=== PATIENT | male | born 1940 | race Caucasian/White ===

== ENCOUNTER → 2016-05-20 | Outpatient (CLI) | payer OTHER | LOC: BHFA 11:00 | PROVIDERS: ATTEND Internal Medicine Cardiovascular Disease | DX: R07.9 Chest pain, unspecified (principal); I73.9 Peripheral vascular disease, unspecified; E78.5 Hyperlipidemia, unspecified; I10 Essential (primary) hypertension; C67.9 Malignant neoplasm of bladder, unspecified ==

== ENCOUNTER → 2016-05-22 | Outpatient (CLI) | payer OTHER | LOC: BHFA 13:30 | PROVIDERS: ATTEND Internal Medicine Cardiovascular Disease | DX: Z01.810 Encounter for preprocedural cardiovascular examination (principal); R07.9 Chest pain, unspecified | CPT/HCPCS: 78452; 93017; A9500 ==

== ENCOUNTER → 2016-07-10 | Outpatient (CLI) | payer OTHER | LOC: CIMAGING 20:01 | PROVIDERS: ATTEND Family Medicine | DX: M79.89 Other specified soft tissue disorders (principal) | CPT/HCPCS: 73030-PO ==

== ENCOUNTER → 2016-08-07 | Outpatient (CLI) | payer OTHER | LOC: CIMAGING 07:05 | PROVIDERS: ATTEND Physician Assistant | DX: Z09 Encounter for follow-up examination after completed treatment for conditions other than malignant neoplasm (principal); Z98.1 Arthrodesis status | CPT/HCPCS: 72100-PO ==

== ENCOUNTER → 2016-10-22 | Outpatient (CLI) | payer OTHER | LOC: CIMAGING 16:56 | PROVIDERS: ATTEND Physician Assistant | DX: Z09 Encounter for follow-up examination after completed treatment for conditions other than malignant neoplasm (principal); Z98.1 Arthrodesis status | CPT/HCPCS: 72100-PO ==

== ENCOUNTER → 2016-12-02 | Outpatient (CLI) | payer OTHER | LOC: CIMAGING 16:09 | PROVIDERS: ATTEND Neurological Surgery | DX: Z98.1 Arthrodesis status (principal) | CPT/HCPCS: 72100-PO ==

== ENCOUNTER → 2017-02-21 | Outpatient (CLI) | payer OTHER | LOC: CIMAGING 09:32 | PROVIDERS: ATTEND Family Medicine | DX: M19.012 Primary osteoarthritis, left shoulder (principal) | CPT/HCPCS: 73030-PO ==

== ENCOUNTER 2017-02-22 06:36 | Emergency (ER) | payer OTHER ==
--- NOTE | 2017-02-22 07:00 | CPEKG ---
Heart Rate: 64 RR Interval: 938 P-R Interval: 160 QRSD Interval: 164 QT Interval: 452 QTC Interval: 467 P [place]: 57 QRS [place]: -75 T Wave [place]: 51 EKG Severity - ABNORMAL ECG - EKG Impression: SINUS RHYTHM EKG Impression: RBBB AND LAFB Electronically Signed By: Fuad Fernandez 22-Feb-2017 07:18:51
[2017-02-22] MEDS ORDERED: ASPIRIN 81 MG CHEWABLE TAB PO ONE (07:03)
[2017-02-22] MEDS ORDERED: NS 1,000 ML IV ONE (07:13)
[2017-02-22 07:15] VITALS: PULSE 60
[2017-02-22 07:18] LABS: % IMMATURE GRANULYOCYTES 0.2 % (0.0-1.1); ABSOLUTE IMMATURE GRANULOCYTES 0.01 10^3/uL (0.00-0.10); ADD DIFF? NO; ADD MORPH? NO; ADD SCAN? NO; ATYPICAL LYMPHOCYTE FLAG 0 (0-99); FRAGMENT RBC FLAG 0 (0-99); HEMATOCRIT 38.8 % (40.0-51.0); LEFT SHIFT FLG 0 (0-99); LIPEMIA HEMOLYSIS FLAG 80 (0-99); MEAN CELL HEMOGLOBIN 32.5 pg (27.9-34.1); MEAN CELL HEMOGLOBIN CONCENTR. 33.5 g/dL (32.4-36.7); MEAN PLATELET VOLUME 9.9 fL (8.7-11.7); PLATELET CLUMPS FLAG 10 (0-99); PLATELET COUNT 218 10^3/uL (150-400)
--- NOTE | 2017-02-22 07:18 | EDPHY ---
H & P Stated Complaint: chest pain for 1 week Time Seen by Provider: 02/22/17 07:05 HPI/ROS: CHIEF COMPLAINT: Chest pain HISTORY OF PRESENT ILLNESS: The patient is a 77-year-old man who comes to the emergency department complaining of chest pain for about 1 week. He states that his symptoms are sharp and over his left breast and intermittent. They seem to be exacerbated by marijuana use. He used marijuana yesterday evening for the 1st time in several days. He states that he is trying to cut down. He had significant pain yesterday evening and then a single episode this morning about an hour and half ago was worse than typical. They usually only last for few seconds. No shortness of breath nausea or diaphoresis associated. No lightheadedness. No worsening with exertion. No radiation. He does have a history of high cholesterol. No hypertension. No recent travel leg pain or swelling. No shortness of breath or pleurisy. No recent fevers or illness. 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 REVIEW OF SYSTEMS: Constitutional: denies: chills, fever, recent illness, recent injury EENTM: denies: blurred vision, double vision, nose congestion Respiratory: denies: cough, shortness of breath Cardiac: See HPI Gastrointestinal/Abdominal: denies: abdominal pain, diarrhea, nausea, vomiting, blood streaked stools Genitourinary: denies: dysuria, frequency, hematuria, pain Musculoskeletal: denies: joint pain, muscle pain Skin: denies: lesions, rash, jaundice, bruising Neurological: denies: headache, numbness, paresthesia, tingling, dizziness, weakness Hematologic/Lymphatic: denies: blood clots, easy bleeding, easy bruising Immunologic/allergic: denies: HIV/AIDS, transplant EXAM: GENERAL: Well-appearing, well-nourished and in no acute distress. HEAD: Atraumatic, normocephalic. EYES: Pupils equal round and reactive to light, extraocular movements intact, sclera anicteric, conjunctiva are normal. ENT: TMs normal, nares patent, oropharynx clear without exudates. Moist mucous membranes. NECK: Normal range of motion, supple without lymphadenopathy or JVD. LUNGS: Breath sounds clear to auscultation bilaterally and equal. No wheezes rales or rhonchi. HEART: Regular rate and rhythm without murmurs, rubs or gallops. ABDOMEN: Soft, nontender, normoactive bowel sounds. No guarding, no rebound. No masses appreciated. BACK: No CVA tenderness, no spinal tenderness, step-offs or deformities EXTREMITIES: Normal range of motion, no pitting or edema. No clubbing or cyanosis. NEUROLOGICAL: Cranial nerves II through XII grossly intact. Normal speech, normal gait. 5/5 strength, normal movement in all extremities, normal sensation PSYCH: Normal mood, normal affect. SKIN: Warm, dry, normal turgor, no visible rashes or lesions. Source: Patient Exam Limitations: No limitations - Personal History Current Tetanus Diphtheria and Acellular Pertussis (TDAP): Yes Tetanus Vaccine Date: unsure - Medical/Surgical History Hx Asthma: No Hx Chronic Respiratory Disease: No Hx Diabetes: No Hx Cardiac Disease: Yes Hx Renal Disease: No Hx Cirrhosis: No Hx Alcoholism: No Hx HIV/AIDS: No Hx Splenectomy or Spleen Trauma: No Other PMH: tib/fib, diverticulitis, bladder CA, INFLAMMATORY POLYARTHROPATHY, spinal fusion L3-L4, HIGH CHOLESTEROL, GASTRIC ULCER, SINUS SURG, TONSILS,APPY, RBBB,arthritis - Family History Significant Family History: No pertinent family hx - Social History Smoking Status: Former smoker Alcohol Use: Sober Drug Use: None Constitutional: Initial Vital Signs Heart Rate 68 02/22/17 06:52 Respiratory Rate 18 02/22/17 06:52 Blood Pressure 190/100 H 02/22/17 06:52 O2 Sat (%) 94 02/22/17 06:52 O2 Delivery Mode Room Air Allergies/Adverse Reactions: droperidol [From Inapsine] Allergy (Intermediate, Verified 02/22/17 06:59) AGITATION Home Medications: Medication Instructions Recorded HYDROcodone/APAP 10 [[place] 1 tab PO BID PRN 04/05/13 (RX)] Omeprazole [Prilosec 40 mg] 40 mg PO BID 04/05/13 Atorvastatin Calcium 07/17/13 Medical Decision Making - Diagnostics EKG Interpretation: An EKG obtained and was read and documented in trace view. Please see trace view for full reading and report. Right bundle branch block and left anterior fascicular unchanged from previous Imaging Results: Imaging Impressions Chest X-Ray 02/22/17 07:15 Impression: Stable negative chest.. Chest/Thorax CTA 02/22/17 07:49 Impression: Negative CT examination of the chest for acute pulmonary thromboembolic disease. Results called to Dr. Fuad Fernandez at 8:30 AM at the time of the interpretation. Imaging: Discussed imaging studies w/ faculty i on call medical assistant Radiologist ED Course/Re-evaluation: 8:45 p.m. we had a long discussion about patient's testing thus far. I recommended he stay for a 4 hour troponin however he declines. He would like to go home. He is currently asymptomatic. He states that he will probably come back at 11 to have his troponin re-drawn then. I explained to him that this is not typical and would require him having a 2nd visit and 2nd bill . He states that that is fine with him. I again Discouraged him from going home concern for if he worsens between then and now. He persisted. We discussed the fact that his orthopedic surgery on Friday will likely need to be postponed and tell he can follow up and have a stress test. Differential Diagnosis: Partial list of the Differential diagnosis considered include but were not limited to; acute coronary disease, musculoskeletal pain, PE and although unlikely based on the history and physical exam, I also considered pneumonia, bronchitis, fracture. I discussed these differential diagnoses and the plan with the patient as well as the usual and expected course. The patient understands that the diagnosis is provisional and that in medicine we are not always correct and that further workup is often warranted. Usual and customary warnings were given. All of the patient's questions were answered. The patient was instructed to return to the emergency department should the symptoms at all worsen or return, otherwise to followup with the physician as we discussed. - Data Points Laboratory Results: Laboratory Results 02/22/17 07:15 02/22/17 07:15 02/22/17 02/22/17 02/22/17 07:15 07:15 07:15 WBC 5.41 10^3/uL 10^3/uL (3.80-9.50) RBC 4.00 10^6/uL L 10^6/uL (4.40-6.38) Hgb 13.0 g/dL L g/dL (13.7-17.5) Hct 38.8 % L % (40.0-51.0) MCV 97.0 fL fL (81.5-99.8) MCH 32.5 pg pg (27.9-34.1) MCHC 33.5 g/dL g/dL (32.4-36.7) RDW 14.0 % % (11.5-15.2) Plt Count 218 10^3/uL 10^3/uL (150-400) MPV 9.9 fL fL (8.7-11.7) Neut % (Auto) 54.2 % % (39.3-74.2) Lymph % (Auto) 26.2 % % (15.0-45.0) Bertie % (Auto) 12.0 % % (4.5-13.0) Eos % (Auto) 6.5 % % (0.6-7.6) Baso % (Auto) 0.9 % % (0.3-1.7) Nucleat RBC Rel Count 0.0 % % (0.0-0.2) Absolute Neuts (auto) 2.93 10^3/uL 10^3/uL (1.70-6.50) Absolute Lymphs (auto) 1.42 10^3/uL 10^3/uL (1.00-3.00) Absolute Monos (auto) 0.65 10^3/uL 10^3/uL (0.30-0.80) Absolute Eos (auto) 0.35 10^3/uL 10^3/uL (0.03-0.40) Absolute Basos (auto) 0.05 10^3/uL 10^3/uL (0.02-0.10) Absolute Nucleated RBC 0.00 10^3/uL 10^3/uL (0-0.01) Immature Gran % 0.2 % % (0.0-1.1) Immature Gran # 0.01 10^3/uL 10^3/uL (0.00-0.10) PT 11.8 SEC L SEC (12.0-15.0) INR 0.89 (0.83-1.16) APTT 31.0 SEC SEC (23.0-38.0) D-Dimer 0.88 ug/mLFEU H ug/mLFEU (0.00-0.50) Sodium 139 mEq/L mEq/L (134-144) Potassium 4.3 mEq/L mEq/L (3.5-5.2) Chloride 106 mEq/L mEq/L (97-110) Carbon Dioxide 23 mEq/l mEq/l (22-31) Anion Gap 10 mEq/L mEq/L (8-16) BUN 20 mg/dL mg/dL (7-23) Creatinine 0.9 mg/dL mg/dL (0.7-1.3) Estimated GFR > 60 Glucose 106 mg/dL H mg/dL (70-100) Calcium 9.5 mg/dL mg/dL (8.5-10.4) Total Bilirubin 1.0 mg/dL mg/dL (0.1-1.4) Conjugated Bilirubin 0.4 mg/dL mg/dL (0.0-0.5) Unconjugated Bilirubin 0.6 mg/dL mg/dL (0.0-1.1) AST 31 IU/L IU/L (17-59) ALT 38 IU/L IU/L (21-72) Alkaline Phosphatase 64 IU/L IU/L (38-126) Troponin I < 0.012 ng/mL ng/mL (0.000-0.034) Total Protein 7.1 g/dL g/dL (6.3-8.2) Albumin 4.4 g/dL g/dL (3.5-5.0) Lipase 126 IU/L IU/L (23-300) Medications Given: Discontinued Medications Aspirin (Aspirin) 324 mg PO EDNOW ONE Stop: 02/22/17 07:04 Last Admin: 02/22/17 07:07 Dose: 324 mg Departure - Departure Disposition: Home, Routine, Self-Care Clinical Impression: Chest pain Qualifiers: Chest pain type: unspecified Qualified Code(s): R07.9 - Chest pain, unspecified Condition: Fair Instructions: Chest Pain (ED) Referrals: Hrenan Jenkins MD [Primary Care Provider] - As per Instructions
[2017-02-22 07:33] LABS: INR 0.89 (0.83-1.16); PROTIME(PATIENT) 11.8 SEC (12.0-15.0)
[2017-02-22 07:37] LABS: ALANINE AMINOTRANSFERASE 38 IU/L (21-72); ALBUMIN 4.4 g/dL (3.5-5.0); ALKALINE PHOSPHATASE 64 IU/L (38-126); ANION GAP 10 mEq/L (8-16); ASPARTATE AMINOTRANSFERASE 31 IU/L (17-59); BILIRUBIN-CONJUGATED 0.4 mg/dL (0.0-0.5); BILIRUBIN-UNCONJUGATED 0.6 mg/dL (0.0-1.1); CALCIUM 9.5 mg/dL (8.5-10.4); CARBON DIOXIDE 23 mEq/l (22-31); CHLORIDE 106 mEq/L (97-110); CREATININE 0.9 mg/dL (0.7-1.3); GLOMERULAR FILTRATION RATE > 60; GLUCOSE 106 mg/dL (70-100); POTASSIUM 4.3 mEq/L (3.5-5.2); SODIUM 139 mEq/L (134-144); TOTAL PROTEIN 7.1 g/dL (6.3-8.2)
[2017-02-22 08:03] LABS: TROPONIN I < 0.012 ng/mL (0.000-0.034)
[2017-02-22] MEDS ORDERED: IOPAMIDOL (ISOVUE 370) 100 ML BTL IV ONE (08:04)
[2017-02-22 08:57] VITALS: BP 180/94; RESP 18; TEMP 98; O2SAT 94
== END 2017-02-22 08:56 | disposition home or self-care (01) ==
LOC: CED 06:36
DX: R07.9 Chest pain, unspecified (principal); Z85.51 Personal history of malignant neoplasm of bladder; Z87.891 Personal history of nicotine dependence
CPT/HCPCS: 71020; 71275; 93005; 99285; Q9967; 80048-PO; 80076-PO; 83690-PO; 84484-PO; 85025-PO; 85378-PO; 85610-PO; 85730-PO

== ENCOUNTER 2017-02-22 11:15 | Emergency (ER) | payer OTHER ==
[2017-02-22 11:27] VITALS: BP 120/86; PULSE 61; RESP 16; O2SAT 93
--- NOTE | 2017-02-22 11:27 | EDPHY ---
H & P Time Seen by Provider: 02/22/17 11:24 HPI/ROS: CHIEF COMPLAINT: Chest pain HISTORY OF PRESENT ILLNESS: Patient is a 77-year-old man who I saw a few hours ago complaining of chest pain for the last couple of days. It is intermittent and sharp over his left breast. He had a negative troponin as well as a CT angio of his chest that was negative. His symptoms resolved. I have recommended that he stay for a 4 hour delta troponin. The patient declines this and stated that he would return. He is now here for his 2nd troponin. He is currently asymptomatic. REVIEW OF SYSTEMS: Constitutional: denies: chills, fever, recent illness, recent injury EENTM: denies: blurred vision, double vision, nose congestion Respiratory: denies: cough, shortness of breath Cardiac: See HPI Gastrointestinal/Abdominal: denies: abdominal pain, diarrhea, nausea, vomiting, blood streaked stools Genitourinary: denies: dysuria, frequency, hematuria, pain Musculoskeletal: denies: joint pain, muscle pain Skin: denies: lesions, rash, jaundice, bruising Neurological: denies: headache, numbness, paresthesia, tingling, dizziness, weakness Hematologic/Lymphatic: denies: blood clots, easy bleeding, easy bruising Immunologic/allergic: denies: HIV/AIDS, transplant EXAM: GENERAL: Well-appearing, well-nourished and in no acute distress. HEAD: Atraumatic, normocephalic. EYES: Pupils equal round and reactive to light, extraocular movements intact, sclera anicteric, conjunctiva are normal. ENT: TMs normal, nares patent, oropharynx clear without exudates. Moist mucous membranes. NECK: Normal range of motion, supple without lymphadenopathy or JVD. LUNGS: Breath sounds clear to auscultation bilaterally and equal. No wheezes rales or rhonchi. HEART: Regular rate and rhythm without murmurs, rubs or gallops. ABDOMEN: Soft, nontender, normoactive bowel sounds. No guarding, no rebound. No masses appreciated. BACK: No CVA tenderness, no spinal tenderness, step-offs or deformities EXTREMITIES: Normal range of motion, no pitting or edema. No clubbing or cyanosis. NEUROLOGICAL: Cranial nerves II through XII grossly intact. Normal speech, normal gait. 5/5 strength, normal movement in all extremities, normal sensation PSYCH: Normal mood, normal affect. SKIN: Warm, dry, normal turgor, no visible rashes or lesions. Source: Patient Exam Limitations: No limitations - Personal History Tetanus Vaccine Date: unsure - Medical/Surgical History Hx Asthma: No Hx Chronic Respiratory Disease: No Hx Diabetes: No Hx Cardiac Disease: Yes Hx Renal Disease: No Hx Cirrhosis: No Hx Alcoholism: No Hx HIV/AIDS: No Hx Splenectomy or Spleen Trauma: No Other PMH: tib/fib, diverticulitis, bladder CA, INFLAMMATORY POLYARTHROPATHY, spinal fusion L3-L4, HIGH CHOLESTEROL, GASTRIC ULCER, SINUS SURG, TONSILS,APPY, RBBB,arthritis - Family History Significant Family History: No pertinent family hx - Social History Smoking Status: Former smoker Alcohol Use: Sober Drug Use: Marijuana Constitutional: Initial Vital Signs Temperature (C) 36.5 C 02/22/17 11:24 Heart Rate 61 02/22/17 11:24 Respiratory Rate 16 02/22/17 11:24 Blood Pressure 120/86 H 02/22/17 11:24 O2 Sat (%) 93 02/22/17 11:24 O2 Delivery Mode Room Air Allergies/Adverse Reactions: droperidol [From Inapsine] Allergy (Intermediate, Verified 02/22/17 11:27) AGITATION Home Medications: Medication Instructions Recorded HYDROcodone/APAP [[place] 1 tab PO BID PRN 04/05/13 10 (RX)] Omeprazole [Prilosec 40 mg] 40 mg PO BID 04/05/13 Atorvastatin Calcium 07/17/13 Medical Decision Making ED Course/Re-evaluation: The patient also asked about some trigger finger symptoms in his left little finger. He states that when he wakes up in the morning it is curled and that he has to manually straighten it and there is a pop. He asked his primary about this who told him that x-rays would not help. I agree. He is able to use his finger with complete function and pain-free after he opens it in the morning. I do suspected trigger finger and will refer him to Hand surgery. He is happy with this plan. 12:40 p.m. the patient's repeat troponin and EKG are unremarkable. He is eager to leave. He feels completely well. He will follow up with his primary about a stress test and will reschedule surgery. Differential Diagnosis: Partial list of the Differential diagnosis considered include but were not limited to; acute coronary disease, PE, arrhythmia, anxiety, muscle strain and although unlikely based on the history and physical exam, I also considered pneumothorax, pneumonia. I discussed these differential diagnoses and the plan with the patient as well as the usual and expected course. The patient understands that the diagnosis is provisional and that in medicine we are not always correct and that further workup is often warranted. Usual and customary warnings were given. All of the patient's questions were answered. The patient was instructed to return to the emergency department should the symptoms at all worsen or return, otherwise to followup with the physician as we discussed. Departure - Departure Disposition: Home, Routine, Self-Care Clinical Impression: Chest pain Trigger finger of left hand Qualifiers: Trigger finger location: little finger Qualified Code(s): M65.352 - Trigger finger, left little finger Condition: Fair Instructions: Chest Pain (ED), Trigger Finger (ED) Referrals: Hernan Jenkins MD [Primary Care Provider] - As per Instructions Kade Thornton MD [Medical Doctor] - As per Instructions
[2017-02-22 11:30] VITALS: TEMP 97.7
--- NOTE | 2017-02-22 12:28 | CPEKG ---
Heart Rate: 59 RR Interval: 1017 P-R Interval: 156 QRSD Interval: 162 QT Interval: 448 QTC Interval: 444 P [place]: 41 QRS [place]: -71 T Wave [place]: 14 EKG Severity - ABNORMAL ECG - EKG Impression: SINUS RHYTHM EKG Impression: ATRIAL PREMATURE COMPLEX EKG Impression: RBBB AND LAFB Electronically Signed By: Fuad Fernandez 22-Feb-2017 12:30:22
== END 2017-02-22 12:48 | disposition home or self-care (01) ==
LOC: CED 11:15
DX: R07.9 Chest pain, unspecified (principal); M65.352 Trigger finger, left little finger; Z85.51 Personal history of malignant neoplasm of bladder; Z87.891 Personal history of nicotine dependence
CPT/HCPCS: 84484-PO

== ENCOUNTER → 2017-04-24 | Outpatient (CLI) | payer OTHER | LOC: CIMAGING 15:00 | PROVIDERS: ATTEND Physician Assistant | DX: Z09 Encounter for follow-up examination after completed treatment for conditions other than malignant neoplasm (principal); Z98.1 Arthrodesis status; M43.16 Spondylolisthesis, lumbar region | CPT/HCPCS: 72100-PO ==

== ENCOUNTER → 2017-08-01 | Outpatient (CLI) | payer OTHER | LOC: CIMAGING 15:55 | PROVIDERS: ATTEND Physician Assistant | DX: M43.16 Spondylolisthesis, lumbar region (principal); Z98.1 Arthrodesis status | CPT/HCPCS: 72100-PO ==

== ENCOUNTER → 2018-01-14 | Outpatient (CLI) | payer OTHER | LOC: CIMAGING 08:49 | PROVIDERS: ATTEND Physician Assistant | DX: Z47.89 Encounter for other orthopedic aftercare (principal); Z98.1 Arthrodesis status | CPT/HCPCS: 72100-PO ==

== ENCOUNTER → 2018-02-25 | Outpatient (CLI) | payer OTHER | LOC: CIMAGING 11:23 | PROVIDERS: ATTEND Family Medicine | DX: R41.82 Altered mental status, unspecified (principal); I70.0 Atherosclerosis of aorta; J32.9 Chronic sinusitis, unspecified | CPT/HCPCS: 70450-PO ==

== ENCOUNTER → 2018-02-27 | Outpatient (CLI) | payer OTHER | LOC: CIMAGING 08:31 | PROVIDERS: ATTEND Family Medicine | DX: R94.5 Abnormal results of liver function studies (principal); N28.1 Cyst of kidney, acquired; R16.0 Hepatomegaly, not elsewhere classified | CPT/HCPCS: 76700-PO ==

== ENCOUNTER → 2018-03-02 | Outpatient (CLI) | payer OTHER | LOC: CIMAGING 19:36 | PROVIDERS: ATTEND Family Medicine | DX: M54.5 Low back pain (principal); Z98.1 Arthrodesis status | CPT/HCPCS: 72100-PO ==

== ENCOUNTER → 2018-05-27 | Outpatient (CLI) | payer OTHER | LOC: CIMAGING 18:07 | PROVIDERS: ATTEND Physician Assistant | DX: M51.26 Other intervertebral disc displacement, lumbar region (principal); M43.16 Spondylolisthesis, lumbar region; Z98.1 Arthrodesis status | CPT/HCPCS: 72100-PO ==

== ENCOUNTER → 2018-10-09 | Outpatient (CLI) | payer OTHER | LOC: CIMAGING 18:44 ==